=== PATIENT | male | born 1985 | race Asian ===

== ENCOUNTER 2016-10-31 05:51 | Emergency (ER) | payer BC ==
[~2016-10-31] VITALS: Ht 182.9 cm; Wt 81.6 kg
[2016-10-31 06:20] VITALS: BP_SYST 128
--- NOTE | 2016-10-31 06:20 | NUR ---
Patient to ER bed 7 to gown for evaluation. Side rails up.
--- NOTE | 2016-10-31 06:30 | NUR ---
PT A&O x 4, c/o of having large amount of fresh blood in his stool since friday. He has been having hemorroids for three weeks. Pt denies any pain, SOB, N/V. aware. Continue to monitor.
--- NOTE | 2016-10-31 06:35 | NUR ---
Francisco J floyd in ED - 10/31/16 at 0636 by [email or web address] Patient to bed 7 to [facility] for evaluation. Side rails up.
--- NOTE | 2016-10-31 06:35 | NUR ---
ER at bedside examining patient.
[2016-10-31 07:16] VITALS: BP_SYST 112
--- NOTE | 2016-10-31 07:19 | NUR ---
Patient given written and verbal discharge instructions and verbalizes understanding. ER MD discussed with patient the results and treatment provided. Patient in stable condition. ID arm band removed. No Rx given. Patient educated on pain management and to follow up with PMD. Pain Scale 0/10. Opportunity for questions provided and answered.
== END 2016-10-31 07:16 | disposition home or self-care (01) ==
LOC: SED 05:51
DX: K62.5 Hemorrhage of anus and rectum (principal)
CPT/HCPCS: 99281